=== PATIENT | male | born 1985 ===

== ENCOUNTER 2017-12-19 04:56 | Emergency (ER) | payer OTHER ==
[~2017-12-19] VITALS: Ht 180.3 cm; Wt 142.3 kg
[2017-12-19 04:57] VITALS: BP 142/93
== END 2017-12-19 07:54 | disposition home or self-care (01) ==
LOC: EMS 04:58
DX: L02.416 Cutaneous abscess of left lower limb (principal); F17.210 Nicotine dependence, cigarettes, uncomplicated; F15.10 Other stimulant abuse, uncomplicated
CPT/HCPCS: 99283; 99406